=== PATIENT | female | born 1935 | race Caucasian/White ===

== ENCOUNTER → 2019-07-10 16:34 | Outpatient (CLI) | payer MEDICARE ==
[~2019-07-10 16:34] MED LIST: ALDACTONE25 MG PO; ALTACE10 MG PO; BAYER CHEWABLE81 MG PO; CALCIUM 600 +1 EAC3 PO; COREG12.5 MG PO; CYTOMEL5 MCG PO; FUROSEMIDE40 MG PO; LEVOTHYROXINE50 MCG PO; MAGNESIUM OXID500 MG PO; VITAMIN B-6100 MG PO; ZOCOR20 MG PO
[2019-07-12 16:08] LABS: ANCA - ANTIMYELOPEROXIDASE <9.0 U/mL (0.0-9.0); ANCA - ANTIPROTEINASE 3 <3.5 U/mL (0.0-3.5); ANCA - ATYPICAL <1:20 titer (Neg:<1:20); ANCA - CYTOPLASMIC <1:20 titer (Neg:<1:20); ANCA - PERINUCLEAR <1:20 titer (Neg:<1:20)
[2019-07-13 18:08] LABS: FUNGAL - ASP FLAVUS Negative (Neg:<1:1); FUNGAL - ASP NIGER Negative (Neg:<1:1); FUNGAL - ASPER FUMIGATUS Negative (Neg:<1:1)
[2019-07-27 12:22] VITALS: BMI 23.7
== END | disposition home or self-care (01) ==
LOC: D.LABREF 16:34
PROVIDERS: ATTEND Internal Medicine Pulmonary Disease
DX: R91.1 Solitary pulmonary nodule (principal)

== ENCOUNTER → 2019-07-12 14:45 | Outpatient (CLI) | payer MEDICARE, OTHER ==
[2019-07-27 12:22] VITALS: BMI 23.7
== END | disposition home or self-care (01) ==
LOC: D.RT 14:45
PROVIDERS: ATTEND Internal Medicine Pulmonary Disease
DX: R91.8 Other nonspecific abnormal finding of lung field (principal)

== ENCOUNTER 2019-07-26 05:35 | Inpatient (IN) | payer MEDICARE, OTHER ==
[2019-07-26] VITALS (11 sets, daily range): BP systolic 103–140; BP diastolic 55–79; BMI 23.7
[~2019-07-26] VITALS: Ht 167.6 cm; Wt 66.7 kg
[2019-07-26 06:06] LABS: ANION GAP 10.7 mmol/L (8-16); CALCIUM 8.6 mg/dL (8.5-10.1); CARBON DIOXIDE 31.9 mmol/L (21.0-32.0); CREATININE - SERUM 1.5 mg/dL (0.6-1.3); POTASSIUM - SERUM 4.6 mmol/L (3.5-5.1)
[2019-07-26 06:10] LABS: INR 1.04 (0.85-1.17); PROTIME 13.1 SECONDS (11.6-15.0)
[2019-07-26 06:11] LABS: APTT 32.3 SECONDS (22.8-39.4)
[2019-07-26 06:21] LABS: BASOPHILS 0.9 % (0-2); HEMOGLOBIN 12.1 g/dL (12-16); IMMATURE GRANULOCYTES 0.2 % (0-5); LYMPHOCYTES 43.6 % (15-50); MCH 31.8 pg (26.0-34.0); MCHC 33.6 g/dL (31.0-37.0); MCV 94.5 fL (80.0-100.0); MEAN PLATELET VOLUME 12.1 fL (7.4-10.4); MONOCYTES 9.5 % (2-11); NEUTROPHILS 41.8 % (40-80); PLATELET COUNT 217 10x3/uL (130-400); RBC 3.81 10x6/uL (4.00-5.40); RDW 13.8 % (11.5-14.5); WBC 5.8 10x3/uL (4.8-10.8)
[2019-07-26] MEDS ORDERED: LEVOTHYROXINE50 MCG PO (06:31)
[2019-07-26] MEDS ORDERED: ZOCOR20 MG PO (06:32)
[2019-07-26] MEDS ORDERED: CYTOMEL5 MCG PO (06:32)
[2019-07-26] MEDS ORDERED: BAYER CHEWABLE81 MG PO (06:32)
[2019-07-26] MEDS ORDERED: ALTACE10 MG PO (06:33)
[2019-07-26] MEDS ORDERED: FUROSEMIDE40 MG PO (06:33)
[2019-07-26] MEDS ORDERED: ALDACTONE25 MG PO (06:33)
[2019-07-26] MEDS ORDERED: COREG12.5 MG PO (06:34)
[2019-07-26] MEDS ORDERED: CALCIUM 600 +1 EAC3 PO (06:35)
[2019-07-26] MEDS ORDERED: MAGNESIUM OXID500 MG PO (06:36)
[2019-07-26] MEDS ORDERED: VITAMIN B-6100 MG PO (06:36)
--- NOTE | 2019-07-26 14:15 | NUR ---
RCV`D PT FROM [facility] VIA HOSPITAL STAFF AND BED. ALERT AND ORIENTED WITH FAMILY AT THE BEDSIDE. CHEST TUBE LOCATED TO RIGHT SIDE OF CHEST UNDER UNDER ARMPIT. IV LOCATED TO RIGHT FOREARM CURRENTLY SALINE LOCKED. CURRENTLY RCVING 2L VIA NC. DENIES NEEDS AT THIS TIME, WILL CONT TO MONITOR.
--- NOTE | 2019-07-26 14:27 | NUR ---
1100 NO CXR RESULTS 1130 REQUEST VERBAL REPORT OF CXR. PT STABLE 1152 CXR VERBAL REPORT. SMALL PNEUMO. PT AND FAMILY INFORMED. AWAING PLAN FROM IR 1225 RX'S WITH NORCO. VSS. 1300 PAIN IMPROVED. 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 PREPARING TO TRANSPORT FOR CHEST TUBE PT STABLE
--- NOTE | 2019-07-26 20:00 | NUR ---
ALERT RESTING IN BED RESP UNLABORED, O2 IN USE VIA N/C, CHEST TUBE INTACT LEFT UPPER CHEST TO CONTINOUS SUCTION, SMALL AMOUNT SEROUS DRAINAGE NOTED IN TUBING FAMILY MEMBER AT BEDSIDE, SEE SHIFT ASSESSMENT, CALL LIGHT IN REACH
[2019-07-27] VITALS: BP 111/62
[2019-07-27 04:00] VITALS: BP 111/54
--- NOTE | 2019-07-27 07:30 | NUR ---
REC'D IN BED WITH EYES CLOSED EASILY TO AROUSED WHEN NAME IS CALLED. RESP EVEN AND UNLABORED WITH NO DISTRESS NOTED. CAN EXPRESS NEEDS AND WANTS. ASSESSMENT COMPLETED. C/L IN REACH AT BEDSIDE.
[2019-07-27 08:47] VITALS: BP 133/63
[2019-07-27 12:19] VITALS: BP 105/69; BP 94/54
[2019-07-27 12:22] VITALS: Ht 167.6 cm; Wt 66.7 kg
--- NOTE | 2019-07-27 15:10 | NUR ---
DC HOME AT THIS TIME VOICE UNDERSTANDING OF DC ORDERS. DAUGHTER AT BEDSIDE AND VOICE UNDERSTANDING WELL. IV DC WITH TIP INTACT.
== END 2019-07-27 15:11 | disposition home or self-care (01) | DRG 200 ==
LOC: D.MS 05:35 → D.OPS 05:35 → D.CT 08:00 → D.MS 14:06 → D.OPS 14:07 → D.MS 07-27 15:11
PROVIDERS: ADMIT Radiology Diagnostic Radiology; ATTEND Radiology Diagnostic Radiology
PROC: 0W9B30Z Drainage of Left Pleural Cavity with Drainage Device, Percutaneous Approach (ICD-10-PCS; 2019-07-26)
PROC: 0BBG3ZX Excision of Left Upper Lung Lobe, Percutaneous Approach, Diagnostic (ICD-10-PCS; principal; 2019-07-26 08:00)
DX: J95.811 Postprocedural pneumothorax (principal); C34.12 Malignant neoplasm of upper lobe, left bronchus or lung; Z95.0 Presence of cardiac pacemaker; I50.9 Heart failure, unspecified; M19.90 Unspecified osteoarthritis, unspecified site; R91.8 Other nonspecific abnormal finding of lung field